=== PATIENT | male | born 1940 | race Caucasian/White ===

== ENCOUNTER → 2017-11-10 | Outpatient (CLI) | payer OTHER ==
[~2017-11-10] MED LIST: BENA40TA2 PO; HYDR-882 PO; METAMUCIL425 GM PO; ONDA4TAB7 PO; PRAV40TA2 PO; TAMS0.4C2 PO
== END | disposition home or self-care (01) ==
LOC: CFH 11:34
PROVIDERS: ATTEND Family Medicine
DX: M48.061 Spinal stenosis, lumbar region without neurogenic claudication (principal); M51.26 Other intervertebral disc displacement, lumbar region; M54.31 Sciatica, right side
CPT/HCPCS: 72148

== ENCOUNTER 2018-12-06 06:07 | Day surgery (SDC) | payer OTHER ==
[2018-12-04 10:12] LABS: ALANINE AMINOTRANSFERASE 25 U/L (12-78); ALBUMIN 3.2 g/dL (3.4-5.0); ANION GAP 5 mmol/L (5-15); CALCIUM 8.5 mg/dL (8.5-10.1); CHLORIDE 106 mmol/L (98-107); CREATININE 1.03 mg/dL (0.7-1.3)
[2018-12-04 10:15] LABS: ALKALINE PHOSPHATASE 78 U/L (45-117); BILIRUBIN,TOTAL 0.6 mg/dL (0.2-1.0); TOTAL PROTEIN 6.9 g/dL (6.4-8.2)
[~2018-12-06] VITALS: Ht 182.9 cm; Wt 97.0 kg
[~2018-12-06 06:07] MED LIST changes: +AMLO-150 PO; -BENA40TA2 PO; +BENA40TA3 PO; +FINA5TAB4 PO; +HYDR-3653 PO; -HYDR-882 PO
[2018-12-06 07:00] VITALS: BP 142/79
[2018-12-06] MEDS ORDERED: GABAPENTIN 300 MG CAPSULE PO ONE (07:00)
[2018-12-06] MEDS ORDERED: ACETAMINOPHEN 500 MG TABLET PO ONE (07:00)
[2018-12-06] MEDS ORDERED: LACTATED RINGERS 1,000 ML IV SCH (07:14)
[2018-12-06] MEDS ORDERED: FENTANYL PF 250 MCG/5ML ONE (07:44)
[2018-12-06] MEDS ORDERED: MIDAZOLAM 1 MG/ML, 2ML ONE (07:44)
[2018-12-06] MEDS ORDERED: MEPERIDINE/PF 25MG/0.5ML IVPush PRN (08:00)
[2018-12-06] MEDS ORDERED: ONDANSETRON 2MG/ML, 2ML IVPush PRN (08:00)
[2018-12-06] MEDS ORDERED: LABETALOL 5MG/ML, 20ML IV PRN (08:00)
[2018-12-06] MEDS ORDERED: HYDROmorphone 1 MG/ML, 1ML AMP IV PRN (08:00)
[2018-12-06] MEDS ORDERED: KETOROLAC 30 MG/1 ML IV PRN (08:00)
[2018-12-06] MEDS ORDERED: hydrALAzine 20 MG/ML, 1ML IV PRN (08:00)
[2018-12-06] MEDS ORDERED: FENTANYL PF 100 MCG/2ML IV PRN (08:00)
[2018-12-06] MEDS ORDERED: PROMETHAZINE 25 MG/ML, 1ML IV PRN (08:00)
[2018-12-06] MEDS ORDERED: METOCLOPRAMIDE 5 MG/ML, 2ML IV PRN (08:00)
[2018-12-06] MEDS ORDERED: OXYcodone 5 MG/5 ML ORAL.SOL UDC PO PRN (08:00)
[2018-12-06] MEDS ORDERED: ALBUTEROL SULFATE 2.5 MG/3 ML NPPB PRN (08:00)
[2018-12-06] MEDS ORDERED: BUPIVACAINE/PF-EPI 0.5% 1:200K ONE (08:23)
[2018-12-06] MEDS ORDERED: BACITRACIN 50,000 UNIT ONE (08:23)
[2018-12-06] MEDS ORDERED: BACITRACIN 50,000 UNIT IM ONE (08:43)
[2018-12-06] MEDS ORDERED: BUPIVACAINE/PF-EPI 0.5% 1:200K INFIL ONE (08:43)
[2018-12-06] MEDS ORDERED: KETOROLAC 30 MG/1 ML ONE (09:58)
[2018-12-06] MEDS ORDERED: PROPOFOL 10 MG/ML, 20ML ONE (15:15)
[2018-12-06] MEDS ORDERED: ONDANSETRON 2MG/ML, 2ML ONE (15:15)
[2018-12-06] MEDS ORDERED: CEFAZOLIN 1,000 MG ONE (15:15)
[2018-12-06] MEDS ORDERED: ROCURONIUM 10MG/ML,5ML ONE (15:15)
[2018-12-06] MEDS ORDERED: SUCCINYLCHOLINE 20 MG/ML, 10ML ONE (15:15)
== END 2018-12-06 12:25 | disposition home or self-care (01) ==
LOC: OUT 06:07
PROVIDERS: ATTEND Surgery
DX: K40.91 Unilateral inguinal hernia, without obstruction or gangrene, recurrent (principal); E78.00 Pure hypercholesterolemia, unspecified; I10 Essential (primary) hypertension; G89.4 Chronic pain syndrome; Z98.890 Other specified postprocedural states
CPT/HCPCS: 36415; 49520; 80053; 88302; 93005; C1781; J0330; J0690; J1885; J2250; J2405; J2704; J3010; J7120

== ENCOUNTER → 2019-10-17 | Outpatient (CLI) | payer MEDICARE, OTHER | END | disposition home or self-care (01) | LOC: CFH 12:02 | PROVIDERS: ATTEND Family Medicine | DX: M47.817 Spondylosis without myelopathy or radiculopathy, lumbosacral region (principal); R29.898 Other symptoms and signs involving the musculoskeletal system | CPT/HCPCS: 72114 ==

== ENCOUNTER → 2021-04-23 | Outpatient (CLI) | payer MEDICARE ==
[~2021-04-23] MED LIST changes: +ASCO500T8 PO; +CHOL10003 PO; +PYRI100T9 PO; +ZINC50TA44 PO
[2021-04-23 14:35] LABS: MICROSCOPIC NOT IND
[2021-04-23 14:52] LABS: BASOPHILS % (AUTO) 1 % (0-1); EOSINOPHILS % (AUTO) 1 % (1-7); LYMPHOCYTES % (AUTO) 17 % (22-44); MEAN CORPUSCULAR HGB CONC 33.8 g/dL (33.2-36.2); MEAN PLATELET VOLUME 8.7 fL (7.4-10.4); MONOCYTES % (AUTO) 8 % (2-9); NEUTROPHILS % (AUTO) 73 % (42-75); PLATELET COUNT 172 x10^3/uL (130-400); RED BLOOD COUNT 4.67 x10^6/uL (4.38-5.82); RED CELL DISTRIBUTION WIDTH 13.9 % (9.4-14.8)
[2021-04-23 15:03] LABS: ALANINE AMINOTRANSFERASE 23 U/L (12-78); CALCIUM 8.6 mg/dL (8.5-10.1); CREATININE 1.12 mg/dL (0.7-1.3)
[2021-04-23 15:06] LABS: ALKALINE PHOSPHATASE 72 U/L (45-117); BILIRUBIN,TOTAL 0.3 mg/dL (0.2-1.0)
[2021-04-23 15:24] LABS: PROTHROMBIN TIME 10.7 Seconds (9.6-11.5)
[2021-04-23 15:25] LABS: ANION GAP 6 mmol/L (5-15); CHLORIDE 107 mmol/L (98-107)
== END | disposition home or self-care (01) ==
LOC: STAR 13:38
PROVIDERS: ATTEND Urology
DX: Z01.818 Encounter for other preprocedural examination (principal); N40.1 Benign prostatic hyperplasia with lower urinary tract symptoms; I48.91 Unspecified atrial fibrillation
CPT/HCPCS: 36415; 80053; 81003; 85025; 85610; 85730; 87086; 93005